=== PATIENT | female | born 1985 | race Caucasian/White ===

== ENCOUNTER 2021-04-06 20:00 | Emergency (ER) | payer MEDICARE, MEDICAID ==
[~2021-04-06] VITALS: Ht 157.4 cm; Wt 86.2 kg
[2021-04-06 22:19] LABS: HEMATOCRIT 40.1 % (37.0-47.0); MEAN CELL VOLUME 90.3 fl (81.0-99.0); MEAN CORPUSCULAR HGB 30.6 pg (27.0-31.0); MEAN CORPUSCULAR HGB CONC 33.9 g/dl (33.0-37.0); MEAN PLATELET VOLUME 10.4 fl (9.6-12.3); PLATELET COUNT AUTOMATED 325 10*3/uL (130-400); RED BLOOD COUNT 4.44 10*6/uL (4.10-5.10); RED CELL DISTRI WIDTH 12.4 % (0-14.5)
[2021-04-06 22:35] LABS: ALBUMIN 2.3 gm/dl (3.1-4.5); CREATININE 3.1 mg/dL (0.55-1.02); TOTAL PROTEIN 4.7 gm/dL (6.4-8.2)
[2021-04-06 22:37] LABS: TROPONIN I 0.024 ng/ml (<0.045)
[2021-04-06 22:51] LABS: WHITE BLOOD COUNT 41.9 10*3/uL (4.8-10.8)
[2021-04-06 22:53] LABS: PLATELET SUFFICIENCY NORMAL (NORMAL); TOTAL CELLS COUNTED 100 #CELLS
[2021-04-07 00:38] LABS: ARTERIAL BLOOD GAS PO2 69.3 (80-90)
[2021-04-07 00:42] LABS: ABG BASE EXCESS -21.9 mmol/L (-2.0-2.0)
[2021-04-07 00:43] LABS: ARTERIAL BLOOD GAS PH 6.824 (7.35-7.45)
[2021-04-07 03:18] LABS: ARTERIAL BLOOD GAS PO2 73.4 (80-90)
[2021-04-07 03:19] LABS: ARTERIAL BLOOD GAS PH 6.988 (7.35-7.45)
== END 2021-04-07 05:25 | disposition short-term general hospital (02) ==
LOC: ED 20:00
PROVIDERS: Internal Medicine
DX: I46.9 Cardiac arrest, cause unspecified (principal); N17.8 Other acute kidney failure; R79.89 Other specified abnormal findings of blood chemistry; K56.609 Unspecified intestinal obstruction, unspecified as to partial versus complete obstruction; E46 Unspecified protein-calorie malnutrition; D72.829 Elevated white blood cell count, unspecified; E87.2 Acidosis; R73.9 Hyperglycemia, unspecified